=== PATIENT | female | born 1935 | race Caucasian/White ===

== ENCOUNTER 2017-04-05 13:50 | Inpatient (IN) | payer MEDICARE, BC ==
[2017-04-05] VITALS (7 sets, daily range): BP systolic 90–158; BP diastolic 36–105
[~2017-04-05] VITALS: Ht 152.4 cm; Wt 61.3 kg
--- NOTE | ~2017-04-05 | CON ---
[place], [place] REPORT OF CONSULTATION NAME: CARLEE VALDEZ UNIT #: [id number] ROOM: [facility] DOCTOR: MARIA TERESA ANGEL,JANUARY BIRTHDATE: [birth year] DOS: 04/06/2017 HISTORY OF PRESENT ILLNESS: The patient is a pleasant 82-year-old female who became ill approximately 5 days ago. She has been having intermittent fevers up to 103 at home. She had loose stools only yesterday. No nausea or vomiting. She also had some poor appetite, malaise, dizziness. She had a headache 2 days ago, which has improved. No cough or shortness of breath. No upper respiratory congestion. No dysuria or frequency. She spiked a temp of 104.7 last night and was transferred from a general floor to ICU. She has not been hypotensive. There has been no need of pressors. Consult was called earlier. She was placed on Merrem and vancomycin as well as doxycycline. She had a lesion appear, first that was noted was yesterday of circular erythema on the left medial thigh, which is not indurated or tender. It was photographed by her daughter. The patient is feeling better. She did have doxycycline started for possible Lyme's disease earlier today. Creatinine was 1.5 at the time of admission. LFTs were elevated. PAST MEDICAL HISTORY: As above, as well for carpal tunnel, hypertension, GERD, hyperlipidemia, macular degeneration, cataract removal with insertion of prosthetic lens, cholecystectomy. SOCIAL HISTORY: Lives alone, nonsmoker, nondrinker. No illicit drug use. She has had no recent travel, no hospitalization over the last few years. The edge of her property [place] and she does tend to get back into areas of high weeds, etc. towards the back of her property, but she does not participate in hiking or any other outdoor activities. FAMILY MEDICAL HISTORY: Significant for sister with CVA. ALLERGIES: INCLUDE PENICILLIN, AMLODIPINE, CIPROFLOXACIN AND LISINOPRIL. REVIEW OF SYSTEMS: As above in history of present illness. No joint swelling or pain. No neck stiffness. She did have a headache 2 days ago, which has since improved. No issues with confusion. This was verified with her daughter. No sore throat. No cough or shortness of breath. Further review of systems is unremarkable. No abdominal pain or cramping. Diarrhea was only for 1 day and has resolved. LABORATORY DATA: WBC is 5.8, platelets 166. She did not have leukocytosis on admission. Sed rate is pending. Labs show BUN 19, creatinine has improved to 0.85. AST 171, ALT 127, alk phos 243. RADIOLOGY: CT of the abdomen and pelvis is negative. Chest x-ray negative. PHYSICAL EXAMINATION: VITAL SIGNS: Temperature 96.7, pulse 76, respirations 16, BP 123/50. GENERAL: An 82-year-old female, in no acute distress, nontoxic in appearance, appears younger than her stated age. HEAD, EYES, EARS, NOSE AND THROAT: Normocephalic. Mucous membranes pink and moist. No thrush. No cervical lymphadenopathy. [place], [place] REPORT OF CONSULTATION NAME: CARLEE VALDEZ UNIT #: [id number] [facility]: [facility] DOCTOR: MARIA TERESA ANGELJANUARY BIRTHDATE: [birth year] NECK: Supple. LUNGS: Clear to auscultation bilaterally. Respirations even and unlabored. HEART: Regular rhythm. No murmur appreciated. ABDOMEN: Soft, nontender, positive bowel sounds, nondistended. EXTREMITIES: No edema, deformity or cyanosis. Left medial thigh with an erythematous area that is not indurated, very little tenderness. No sign of blistering. No fluctuance. The area is flat. SKIN: Otherwise warm, dry, free of rashes. BACK: No CVA tenderness. ASSESSMENT AND PLAN: Fever. Lyme's disease does seem unlikely given her very little exposure to areas of where she could be bitten; however, the property line where she tends to pull weeds may be suspect. We will continue the doxycycline, continue the Merrem and vancomycin overnight. If her blood cultures remain sterile tomorrow, we will stop the IV antibiotics. Lyme's serology is pending, but that will take several days, which I discussed with the patient and her daughter. HERBERT MOREL CNP CORNELIUS SHARMA MD CM:CONSTR:REPORT OF CONSULTATION 1627 04/06/17 2310 interface
--- NOTE | ~2017-04-05 | PR ---
[place], [place] PROGRESS NOTE NAME: CARLEE VALDEZ UNIT #: [id number] ROOM: [facility] [place] DOCTOR: EDITH LINDA,CORNELIUS Abdul BIRTHDATE: [birth year] DOS: 04/06/2017 ADDENDUM INFECTIOUS DISEASE I agree with above plans after reviewing the chart, labs and radiographs. I will follow the patient up clinically and make adjustments accordingly. CORNELIUS SHARMA MD CM:PNTRANS 11 35 CORNELIUS SHARMA MD 04/06/17 223 interface
--- NOTE | ~2017-04-05 | PR ---
[place], [place] PROGRESS NOTE NAME: CARLEE VALDEZ UNIT #: [id number] ROOM: 405 DOCTOR: MARIA TERESA ANGEL,JANUARY BIRTHDATE: [birth year] DOS: 04/07/2017 SUBJECTIVE: The patient is being followed for fever with concern for possible Lyme's disease. She had developed circular red edematous area in her left medial thigh, slightly indurated, which tenderness is improving. Her EIA or Lyme's immunoglobulin has come back negative. Blood cultures remain sterile. Urine cultures are sterile. She is on doxycycline, Merrem and vancomycin. She was afebrile overnight and states she feels much better. Denies any nausea, vomiting, diarrhea. No rash or itch. No cough or shortness of breath. No fevers or shaking chills. PHYSICAL EXAMINATION: VITAL SIGNS: Show temp 97.6, pulse 72, respirations 19, BP 156/76. GENERAL: An 82-year-old female, in no acute distress. HEAD, EYES, EARS, NOSE AND THROAT: Normocephalic. No thrush. LUNGS: Clear to auscultation bilaterally. Respirations even and unlabored. HEART: Regular rhythm. No murmur appreciated. ABDOMEN: Soft, nontender. EXTREMITIES: No edema, deformity or cyanosis. SKIN: Warm, dry. She does again have the left medial thigh area of erythema with mild induration, very little tenderness. There are no areas of fluctuance or signs of abscess or wound, but seemed to be slightly raised in the center; however, mild increased warmth. LABORATORY DATA: Showed WBC is 3.9, platelets 186. BUN 10, creatinine 0.59. Sed rate of 30. Hepatitis panel negative except for hepatitis A IgM, which was indeterminate. CURRENT MEDICATIONS: Include Merrem, vancomycin, K-Phos, vitamin D, multivitamin, Lovenox, doxycycline. ASSESSMENT: Questionable Lyme's disease. It is of note that the EIA immunoglobulins can be negative in early infection 20% to 40% of the time. PLAN: At this point, we will stop the Merrem and vancomycin, leave on her the doxycycline. If she continues to do well overnight, remains afebrile and feels well, she can be discharged tomorrow with another 12 days of doxycycline to give her a total of 14 days. I did discuss all of this with her at length as well as risk of photosensitivity with the doxycycline. No calcium for an hour before or an hour after that can effect absorption as well as taking it with food to help with any nausea. Case discussed with Dr. Cornelius Sharma. JANUARY STANLEY MOREL [place], [place] PROGRESS NOTE NAME: CARLEE VALDEZ UNIT #: [id number] ROOM: 405 DOCTOR: MARIA TERESA ANGEL BIRTHDATE: [birth year] CORNELIUS SHARMA MD CM:PNTRANS 172 23 MARIA TERESA ANGEL 04/07/17 182 interface
--- NOTE | ~2017-04-05 | PR ---
[place], [place] PROGRESS NOTE NAME: CARLEE VALDEZ UNIT #: [id number] ROOM: 405 DOCTOR: EDITH LINDA,CORNELIUS Abdul BIRTHDATE: [birth year] DOS: 04/07/2017 ADDENDUM After reviewing the chart and labs, I agree with the above plans of management. We will follow the patient clinically and adjust accordingly. CORNELIUS SHARMA MD CM:PNTRANS 1729 [id number] CORNELIUS SHARMA MD 04/10/17 1252 interface
[~2017-04-05 13:50] MED LIST: ASPIRIN81 M1 PO; ATIVAN0.5 MG PO; BACTRIM DS 8001 TA1 PO; BENADRYL25 MG PO; CRESTOR10 M1 PO; CRESTOR10 MG PO; CRESTOR20 MG PO; LISINOPRIL AND1 TA2 PO; MUCINEX600 MG PO; NORCO 325 MG-51 TAB PO; NORVASC10 MG PO; OCUVITE1 TA1 PO; PANTOPRAZOLE SO40 MG PO; PEPCID20 MG PO; PREDNICOT20 MG PO; PROTONIX40 MG PO; TRIAMTERENE/HCT1 TAB PO; VITAMIN D1000 IU PO; VITAMIN D2000 IU PO
[2017-04-05 14:41] LABS: BASO % 0.2 % (0.0-1.0); HEMATOCRIT 38.9 % (37.0-47.0); HEMOGLOBIN 13.2 g/dl (12.0-16.0); LYMPH # 0.6 10*3/uL (1.3-4.4); LYMPH % 9.3 % (27.0-41.0); MEAN CELL VOLUME 91.7 fl (81.0-99.0); MEAN CORPUSCULAR HGB 31.1 pg (27.0-31.0); MEAN CORPUSCULAR HGB CONC 33.9 g/dl (33.0-37.0); MEAN PLATELET VOLUME 10.1 fl (9.6-12.3); MONO # 0.2 10*3/uL (0.1-1.0); MONO % 3.6 % (3.0-9.0); NEUT # 5.6 10*3/uL (2.3-7.9); NEUT % 86.6 % (47.0-73.0); PLATELET COUNT AUTOMATED 191 10*3/uL (130-400); RED BLOOD COUNT 4.24 10*6/uL (4.10-5.10); RED CELL DISTRI WIDTH 13.2 % (0-14.5); WHITE BLOOD COUNT 6.4 10*3/uL (4.8-10.8)
[2017-04-05 14:57] LABS: ALBUMIN 3.1 gm/dl (3.1-4.5); ALKALINE PHOSPHATASE 259 U/L (45-117); BILIRUBIN, TOTAL 0.7 mg/dl (0.2-1.0); BUN 22 mg/dl (7-24); CARBON DIOXIDE 27 mmol/L (21-32); CHLORIDE 98 mmol/L (98-107); EST GLOM FILT AFRICAN AMERICAN 40 ml/min; GLUCOSE 157 mg/dL (65-99); MAGNESIUM 2.1 mg/dL (1.5-2.1); POTASSIUM 3.7 mmol/L (3.5-5.1); SGOT/AST 230 IU/L (3-35); SGPT/ALT 134 U/L (12-78); SODIUM 136 mmol/L (136-145); TOTAL PROTEIN 7.3 gm/dL (6.4-8.2)
[2017-04-05 14:58] LABS: TROPONIN I < 0.015 ng/ml (<0.045)
[2017-04-05 18:28] LABS: BILIRUBIN 1+ (NEGATIVE); BLOOD TRACE-LYSED (NEGATIVE); CLARITY CLOUDY (CLEAR); COLOR YELLOW (YELLOW); GLUCOSE NEGATIVE (NEGATIVE); KETONE NEGATIVE (NEGATIVE); LEUKO ESTERASE 1+ (NEGATIVE); NITRITE NEGATIVE (NEGATIVE); PROTEIN 1+ (NEGATIVE)
[2017-04-05 18:41] LABS: BACTERIA 2+
[2017-04-05 18:42] LABS: URINE REFLEX COMMENT YES (NO); WBC 21-30 wbc/hpf (0-5)
[2017-04-05 22:47] LABS: BASO % 0.2 % (0.0-1.0); HEMATOCRIT 34.1 % (37.0-47.0); HEMOGLOBIN 11.5 g/dl (12.0-16.0); LYMPH # 0.4 10*3/uL (1.3-4.4); LYMPH % 5.6 % (27.0-41.0); MEAN CELL VOLUME 92.7 fl (81.0-99.0); MEAN CORPUSCULAR HGB 31.3 pg (27.0-31.0); MEAN CORPUSCULAR HGB CONC 33.7 g/dl (33.0-37.0); MEAN PLATELET VOLUME 10.2 fl (9.6-12.3); MONO # 0.3 10*3/uL (0.1-1.0); MONO % 4.3 % (3.0-9.0); NEUT # 5.7 10*3/uL (2.3-7.9); NEUT % 89.7 % (47.0-73.0); PLATELET COUNT AUTOMATED 159 10*3/uL (130-400); RED BLOOD COUNT 3.68 10*6/uL (4.10-5.10); RED CELL DISTRI WIDTH 13.3 % (0-14.5); WHITE BLOOD COUNT 6.3 10*3/uL (4.8-10.8)
[2017-04-05 23:03] LABS: ALBUMIN 2.6 gm/dl (3.1-4.5); BILIRUBIN, TOTAL 0.6 mg/dl (0.2-1.0); POTASSIUM 3.4 mmol/L (3.5-5.1); TOTAL PROTEIN 6.3 gm/dL (6.4-8.2)
[2017-04-06] VITALS: BP 114/53
[2017-04-06 04:00] VITALS: BP 127/53
[2017-04-06 06:11] LABS: BASO % 0.2 % (0.0-1.0); EOS % 0.2 % (1.0-4.0); HEMATOCRIT 32.2 % (37.0-47.0); HEMOGLOBIN 10.7 g/dl (12.0-16.0); LYMPH # 0.6 10*3/uL (1.3-4.4); LYMPH % 10.7 % (27.0-41.0); MEAN CELL VOLUME 93.1 fl (81.0-99.0); MEAN CORPUSCULAR HGB 30.9 pg (27.0-31.0); MEAN CORPUSCULAR HGB CONC 33.2 g/dl (33.0-37.0); MEAN PLATELET VOLUME 10.5 fl (9.6-12.3); MONO # 0.3 10*3/uL (0.1-1.0); NEUT # 4.9 10*3/uL (2.3-7.9); NEUT % 83.6 % (47.0-73.0); PLATELET COUNT AUTOMATED 166 10*3/uL (130-400); RED BLOOD COUNT 3.46 10*6/uL (4.10-5.10); RED CELL DISTRI WIDTH 13.3 % (0-14.5); WHITE BLOOD COUNT 5.8 10*3/uL (4.8-10.8)
[2017-04-06 06:42] LABS: ALBUMIN 2.3 gm/dl (3.1-4.5); BUN 19 mg/dl (7-24); CARBON DIOXIDE 29 mmol/L (21-32); CHLORIDE 105 mmol/L (98-107); GLUCOSE 111 mg/dL (65-99); POTASSIUM 2.9 mmol/L (3.5-5.1); SODIUM 139 mmol/L (136-145)
[2017-04-06 06:51] LABS: ALKALINE PHOSPHATASE 243 U/L (45-117); BILIRUBIN, TOTAL 0.6 mg/dl (0.2-1.0); CHOLESTEROL 105 mg/dL (<200); EST GLOM FILT AFRICAN AMERICAN > 60 ml/min; HDL CHOLESTEROL 68 mg/dl (40-60); LDL CHOLESTEROL 26 mg/dL (9-159); PHOSPHOROUS 2.3 mg/dL (2.5-4.9); SGOT/AST 171 IU/L (3-35); SGPT/ALT 127 U/L (12-78); THYROID STIM HORMONE (HS) 0.411 uIU/ml (0.358-4.75); TOTAL PROTEIN 5.5 gm/dL (6.4-8.2); TRIGLYCERIDES 56 mg/dl (<150); VLDL CHOLESTEROL 11 mg/dL (6-40)
[2017-04-06 07:07] LABS: HEMOGLOBIN A1c 5.9 % (4.8-5.6)
[2017-04-06 08:00] VITALS: BP 121/54
[2017-04-06 08:47] LABS: VITAMIN D, 25-HYDROXY 34.8 ng/mL (30-100)
[2017-04-06 08:48] LABS: FOLIC ACID 21.21 ng/mL (>5.38)
[2017-04-06 12:00] VITALS: BP 123/50
[2017-04-06 16:11] LABS: LYME AB/TOTAL IMMUNOGLOBULINS <0.91 ISR (0.00-0.90)
[2017-04-06 20:00] VITALS: BP 143/67
[2017-04-07] VITALS: BP 135/50
[2017-04-07 04:00] VITALS: BP 139/47
[2017-04-07 05:28] LABS: BUN 10 mg/dl (7-24); CARBON DIOXIDE 27 mmol/L (21-32); CHLORIDE 108 mmol/L (98-107); EST GLOM FILT AFRICAN AMERICAN > 60 ml/min; GLUCOSE 100 mg/dL (65-99); MAGNESIUM 1.9 mg/dL (1.5-2.1); PHOSPHOROUS 1.1 mg/dL (2.5-4.9); POTASSIUM 3.2 mmol/L (3.5-5.1); SODIUM 142 mmol/L (136-145)
[2017-04-07 06:00] LABS: HEMATOCRIT 30.6 % (37.0-47.0); HEMOGLOBIN 10.4 g/dl (12.0-16.0); MEAN CELL VOLUME 93.3 fl (81.0-99.0); MEAN CORPUSCULAR HGB 31.7 pg (27.0-31.0); PLATELET COUNT AUTOMATED 186 10*3/uL (130-400); RED BLOOD COUNT 3.28 10*6/uL (4.10-5.10); RED CELL DISTRI WIDTH 13.5 % (0-14.5); WHITE BLOOD COUNT 3.9 10*3/uL (4.8-10.8)
[2017-04-07 06:23] LABS: BASOPHILS 1 % (0-1); BURR CELLS FEW; EOSINOPHILS 1 % (1-4); LYMPHOCYTE # 1.3 10*3/uL (1.3-4.4); MONOCYTE # 0.1 10*3/uL (0.1-1.0); NEUTROPHIL # 2.5 10*3/uL (2.3-7.9); NEUTROPHILS 63 % (47-73); PLATELET SUFFICIENCY NORMAL (NORMAL); POLYCHROMASIA SLIGHT; TOTAL CELLS COUNTED 100 #CELLS
[2017-04-07 08:00] VITALS: BP 142/54
[2017-04-07 08:17] LABS: HEPATITIS C VIRUS ANTIBODY <0.1 s/co (0.0-0.9)
[2017-04-07 12:00] VITALS: BP 146/59
[2017-04-07 16:00] VITALS: BP 156/76
[2017-04-07 20:00] VITALS: BP 140/38
[2017-04-08] VITALS: BP 140/60
[2017-04-08 06:34] LABS: BUN 8 mg/dl (7-24); CARBON DIOXIDE 29 mmol/L (21-32); CHLORIDE 105 mmol/L (98-107); EST GLOM FILT AFRICAN AMERICAN > 60 ml/min; GLUCOSE 88 mg/dL (65-99); MAGNESIUM 1.8 mg/dL (1.5-2.1); PHOSPHOROUS 2.4 mg/dL (2.5-4.9); POTASSIUM 3.6 mmol/L (3.5-5.1); SODIUM 142 mmol/L (136-145)
[2017-04-08 08:02] VITALS: BP 140/86
[2017-04-08] MEDS ORDERED: K-PHOS500 MG PO (10:15)
[2017-04-08] MEDS ORDERED: DOXYCYCLINE MO100 M1 PO (10:15)
== END 2017-04-08 10:41 | disposition home or self-care (01) | DRG 871 ==
LOC: ED 13:50 → ICCU 15:08 → EDHOLD 15:08 → 5E 15:13 → ICCU 21:50 → 4E 04-07 15:02
PROVIDERS: Family Medicine; Hospitalist; Internal Medicine; Student in an Organized Health Care Education/Training Program
DX: A41.9 Sepsis, unspecified organism (principal); N17.0 Acute kidney failure with tubular necrosis; R57.1 Hypovolemic shock; A69.20 Lyme disease, unspecified; I10 Essential (primary) hypertension; K21.9 Gastro-esophageal reflux disease without esophagitis; E78.5 Hyperlipidemia, unspecified; H35.30 Unspecified macular degeneration; K52.9 Noninfective gastroenteritis and colitis, unspecified; R65.20 Severe sepsis without septic shock; E87.6 Hypokalemia; E83.39 Other disorders of phosphorus metabolism; K57.90 Diverticulosis of intestine, part unspecified, without perforation or abscess without bleeding; Z90.49 Acquired absence of other specified parts of digestive tract; Z82.3 Family history of stroke; Z88.1 Allergy status to other antibiotic agents; Z88.8 Allergy status to other drugs, medicaments and biological substances; Z79.899 Other long term (current) drug therapy

== ENCOUNTER 2017-04-11 10:52 | Emergency (ER) | payer MEDICARE, BC ==
[~2017-04-11] VITALS: Ht 152.4 cm; Wt 59.9 kg
[~2017-04-11 10:52] MED LIST changes: +DOXYCYCLINE MO100 M1 PO; +K-PHOS500 MG PO
[2017-04-11] MEDS ORDERED: CRESTOR10 M1 PO (10:58)
[2017-04-11 11:53] LABS: BILIRUBIN NEGATIVE (NEGATIVE); BLOOD NEGATIVE (NEGATIVE); CLARITY CLEAR (CLEAR); COLOR YELLOW (YELLOW); GLUCOSE NEGATIVE (NEGATIVE); KETONE NEGATIVE (NEGATIVE); LEUKO ESTERASE 1+ (NEGATIVE); NITRITE NEGATIVE (NEGATIVE); PH 5.5 (5.0-9.0); PROTEIN NEGATIVE (NEGATIVE); SPECIFIC GRAVITY <= 1.005 (1.005-1.030); UROBILINOGEN 0.2 E.U./dl (0.2-1.0)
[2017-04-11 12:00] LABS: BACTERIA TRACE; EPITHELIAL CELLS 0-2; URINE REFLEX COMMENT YES (NO)
[2017-04-11 12:13] LABS: BASO % 0.3 % (0.0-1.0); EOS # 0.3 10*3/uL (0.0-0.4); EOS % 4.7 % (1.0-4.0); HEMATOCRIT 34.8 % (37.0-47.0); HEMOGLOBIN 11.6 g/dl (12.0-16.0); IG # 0.1 10*3/uL (0.0-0.1); LYMPH # 2.2 10*3/uL (1.3-4.4); LYMPH % 32.2 % (27.0-41.0); MEAN CELL VOLUME 93.3 fl (81.0-99.0); MEAN CORPUSCULAR HGB 31.1 pg (27.0-31.0); MEAN CORPUSCULAR HGB CONC 33.3 g/dl (33.0-37.0); MEAN PLATELET VOLUME 9.4 fl (9.6-12.3); MONO # 0.4 10*3/uL (0.1-1.0); MONO % 6.5 % (3.0-9.0); NEUT # 3.8 10*3/uL (2.3-7.9); NEUT % 55.4 % (47.0-73.0); PLATELET COUNT AUTOMATED 369 10*3/uL (130-400); RED BLOOD COUNT 3.73 10*6/uL (4.10-5.10); RED CELL DISTRI WIDTH 13.2 % (0-14.5); WHITE BLOOD COUNT 6.8 10*3/uL (4.8-10.8)
[2017-04-11 12:21] LABS: PROTHROMBIN TIME 10.7 SECONDS (9.0-12.4)
[2017-04-11 12:30] LABS: ALBUMIN 3.2 gm/dl (3.1-4.5); ALKALINE PHOSPHATASE 213 U/L (45-117); BILIRUBIN, TOTAL 0.5 mg/dl (0.2-1.0); BUN 15 mg/dl (7-24); C-REACTIVE PROTEIN 0.97 MG/DL (0-0.3); CARBON DIOXIDE 30 mmol/L (21-32); CHLORIDE 101 mmol/L (98-107); CKMB 0.6 ng/ml (0.5-3.6); CPK 21 U/L (26-192); EST GLOM FILT AFRICAN AMERICAN > 60 ml/min; GLUCOSE 94 mg/dL (65-99); IRON 41 ug/dL (50-170); IRON SATURATION 15 %; MAGNESIUM 1.8 mg/dL (1.5-2.1); SGOT/AST 42 IU/L (3-35); SGPT/ALT 58 U/L (12-78); SODIUM 143 mmol/L (136-145); TOTAL PROTEIN 7.2 gm/dL (6.4-8.2); UIBC 229 ug/dL (110-365)
[2017-04-11 12:31] LABS: TROPONIN I < 0.015 ng/ml (<0.045)
== END 2017-04-11 15:09 | disposition home or self-care (01) ==
LOC: ED 10:52
PROVIDERS: Emergency Medicine
DX: K92.1 Melena (principal); K21.9 Gastro-esophageal reflux disease without esophagitis; I10 Essential (primary) hypertension; E78.5 Hyperlipidemia, unspecified; Z88.0 Allergy status to penicillin; Z88.1 Allergy status to other antibiotic agents; Z88.8 Allergy status to other drugs, medicaments and biological substances; Z79.899 Other long term (current) drug therapy; Z90.49 Acquired absence of other specified parts of digestive tract